=== PATIENT | male | born 1975 | race Caucasian/White ===

== ENCOUNTER → 2016-11-05 | Outpatient (CLI) | payer OTHER, MEDICAID ==
--- NOTE | 2016-11-05 16:23 | DX ---
Chest, PA and Lateral History: Cough and fever x3 days R05 Comparison: September 14, 2016 Findings: There is some new localized tubular patchy consolidation in the posterior chest, seen only on the lateral view overlying the thoracic spine and costophrenic gutter region, consistent with eith er mucous plugging or minimal atelectasis. Heart size is normal. There is no adenopathy or mass lesi on. There is no pleural effusion or obvious pneumonia. Bones are unremarkable for age. Impression: Mucous plugging plus minus minor atelectasis posterior chest, side indeterminate. No pne umonia.
== END ==
LOC: BMCIMAGING 15:37
DX: R05 Cough (principal); R50.9 Fever, unspecified; J98.11 Atelectasis

== ENCOUNTER 2016-12-21 20:52 | Emergency (ER) | payer OTHER, MEDICAID ==
[2016-12-21] MEDS ORDERED: KETAMINE 500 MG/10 ML VIAL ONE (21:04)
--- NOTE | 2016-12-21 21:04 | EDPHY ---
H & P Time Seen by Provider: 12/21/16 20:54 HPI/ROS: CHIEF COMPLAINT: " I am going to kill myself" HISTORY OF PRESENT ILLNESS: Patient is a 41-year-old male brought in by EMS and police after being found agitated and combative. Patient was walking in traffic and being belligerent per the security police officer. He was combative. He was tazed twice in the back. He continued to be combative and was given Versed 5 mg IM. On arrival to the emergency department he is yelling and not cooperative. He will not answer any questions. REVIEW OF SYSTEMS: Unable to obtain review of systems due to combativeness Past Medical/Surgical History: Unknown Past surgical history: Unknown Smoking Status: Light smoker Physical Exam: GENERAL: Extremely agitated. Combative. Screaming explitives and insults at staff. Requiring multiple personnel told the patient on the plan. HEENT: Spit mask in place. Because of his combativeness complete exam was not able to be performed. NECK: Supple. Moves neck freely.. RESPIRATORY: Clear to auscultation bilaterally, no rales, rhonchi or wheezing. CVS: mild tachycardia with regular rhythm, no rubs, murmurs, or gallops. ABDOMEN: obese. Soft, nontender, nondistended. BACK: Normal to inspection, no CVA tenderness. Back abrasion. Taser prongs removed from the back. SKIN: Normal color, no rash, warm, dry. No pallor. EXTREMITIES: No pedal edema, no joint swelling. NEURO/PSYCH: Alert and combative. Moves all extremities with purposeful movement. Constitutional: Initial Vital Signs Temperature (C) 37.2 C 12/21/16 21:23 Heart Rate 114 H 12/21/16 21:23 Respiratory Rate 20 12/21/16 21:23 Blood Pressure 168/88 H 12/21/16 21:23 O2 Sat (%) 95 12/21/16 21:23 O2 Delivery Mode Non-Rebreather Mask O2 (L/minute) 15 Allergies/Adverse Reactions: prednisone Allergy (Severe, Verified 04/04/16 21:18) haloperidol [From Haldol] Allergy (Unknown, Verified 04/04/16 21:18) haloperidol lactate [From Haldol] Allergy (Unknown, Verified 04/04/16 21:18) morphine Allergy (Unknown, Verified 09/14/16 19:54) Rash quetiapine fumarate [From Seroquel] Allergy (Unknown, Verified 04/04/16 21:18) risperidone Allergy (Unknown, Verified 04/04/16 21:18) shellfish derived Allergy (Unknown, Verified 04/05/16 14:38) ziprasidone HCl [From Geodon] Allergy (Unknown, Verified 04/04/16 21:18) ziprasidone mesylate [From Geodon] Allergy (Unknown, Verified 04/04/16 21:18) Home Medications: Medication Instructions Recorded Dextroamphetamine ER [Dexedrine 15 30 mg PO BID@08,14 #60 cap 04/15/16 MG (*)] Pantoprazole Sodium [Protonix 40mg 40 mg PO DAILY #30 tab 04/15/16 (*)] clonazePAM [klonoPIN (*)] 1 mg PO TID #30 tab 04/15/16 ARIPiprazole [Abilify Maintena] 400 mg IM Q30D 09/14/16 Acetaminophen [Tylenol ES 500 mg 1,000 mg PO BID PRN 09/14/16 (*)] Albuterol [Proventil Inhaler HFA 2 puffs IH Q4H PRN 09/14/16 (*)] Aspirin [Aspirin 325 mg (*)] 650 mg PO BID PRN 09/14/16 Gabapentin [Neurontin 300 MG (*)] 300 mg PO HS 09/14/16 Ranitidine HCl [Zantac] 150 mg PO Q8H PRN 09/14/16 Methylprednisolone 1 each PO AD #1 tab.ds.pk 09/16/16 guaiFENesin/DEXTROMETHORPHAN 10 ml PO Q4HRS PRN #0 ml 09/16/16 [Robitussin Dm Oral Liquid (*)] Oseltamivir Phosphate [Tamiflu 75 75 mg PO BIDMEAL #5 cap 09/17/16 mg (*)] Oxycodone HCl 5 mg PO Q6 PRN #15 tablet 09/17/16 Medical Decision Making ED Course/Re-evaluation: In the emergency department met EMS and police on arrival. As stated in HPI, the patient was extremely combative. I was worried he may harm the staff. The patient was given Haldol 15 mg IM. Staff continued to hold the patient on the EMS pram to see if his agitation would improve. He was subsequently given a dose of ketamine 500 mg IM. The patient became less combative and calmed down. He was able to be moved to our bed. He is placed in hard 4 point restraints. The patient remained calm. His hard restraints were removed. 2300: Patient is signed out to Dr. Oneal at change of shift. The patient is awaiting further evaluation and clearance. Differential Diagnosis: My differential includes but is not limited to agitated delirium, psychosis, schizophrenia, drug overdose, drug abuse, alcohol abuse, electrolyte abnormality , sugar abnormality, hyperthermia, mass, malignancy, CVA - Data Points Laboratory Results: Laboratory Results 12/21/16 22:38 12/21/16 12/21/16 12/21/16 22:38 22:38 22:15 WBC 12.87 10^3/uL H 10^3/uL (3.80-9.50) RBC 5.74 10^6/uL 10^6/uL (4.40-6.38) Hgb 18.1 g/dL H g/dL (13.7-17.5) Hct 53.1 % H % (40.0-51.0) MCV 92.5 fL fL (81.5-99.8) MCH 31.5 pg pg (27.9-34.1) MCHC 34.1 g/dL g/dL (32.4-36.7) RDW 13.3 % % (11.5-15.2) Plt Count 252 10^3/uL 10^3/uL (150-400) MPV 11.0 fL fL (8.7-11.7) Neut % (Auto) 80.0 % H % (39.3-74.2) Lymph % (Auto) 13.9 % L % (15.0-45.0) Alfalfa % (Auto) 4.5 % % (4.5-13.0) Eos % (Auto) 0.5 % L % (0.6-7.6) Baso % (Auto) 0.6 % % (0.3-1.7) Nucleat RBC Rel Count 0.0 % % (0.0-0.2) Absolute Neuts (auto) 10.29 10^3/uL H 10^3/uL (1.70-6.50) Absolute Lymphs (auto) 1.79 10^3/uL 10^3/uL (1.00-3.00) Absolute Monos (auto) 0.58 10^3/uL 10^3/uL (0.30-0.80) Absolute Eos (auto) 0.07 10^3/uL 10^3/uL (0.03-0.40) Absolute Basos (auto) 0.08 10^3/uL 10^3/uL (0.02-0.10) Absolute Nucleated RBC 0.00 10^3/uL 10^3/uL (0-0.01) Immature Gran % 0.5 % % (0.0-1.1) Immature Gran # 0.06 10^3/uL 10^3/uL (0.00-0.10) Turbidity REJ Sodium Pending REJ Potassium Pending REJ Chloride Pending REJ Carbon Dioxide Pending REJ Anion Gap Pending REJ BUN Pending REJ Creatinine Pending REJ Estimated GFR Pending REJ Glucose Pending REJ Calcium Pending REJ Icterus Index REJ Specimen Hemolysis REJ Salicylates Pending REJ Acetaminophen Pending REJ Ethyl Alcohol Pending REJ 12/21/16 22:15 WBC TNP RBC TNP Hgb TNP Hct TNP MCV TNP MCH TNP MCHC TNP RDW TNP Plt Count TNP MPV TNP Neut % (Auto) TNP Lymph % (Auto) TNP Alfalfa % (Auto) TNP Eos % (Auto) TNP Baso % (Auto) TNP Nucleat RBC Rel Count TNP Absolute Neuts (auto) TNP Absolute Lymphs (auto) TNP Absolute Monos (auto) TNP Absolute Eos (auto) TNP Absolute Basos (auto) TNP Absolute Nucleated RBC TNP Immature Gran % TNP Immature Gran # TNP Turbidity Sodium Potassium Chloride Carbon Dioxide Anion Gap BUN Creatinine Estimated GFR Glucose Calcium Icterus Index Specimen Hemolysis Salicylates Acetaminophen Ethyl Alcohol Medications Given: Discontinued Medications Ketamine HCl (Ketamine) 500 mg IM EDNOW ONE Stop: 12/21/16 21:51 Last Admin: 12/21/16 21:01 Dose: 500 mg Departure - Departure Disposition: [facility] Clinical Impression: Altered mental status Qualifiers: Altered mental status type: unspecified Qualified Code(s): R41.82 - Altered mental status, unspecified Condition: Fair Referrals: NONE *PRIMARY CARE P,. [Primary Care Provider] - As per Instructions
[2016-12-21] MEDS ORDERED: KETAMINE 500 MG/10 ML VIAL IM ONE (21:50)
[2016-12-21] MEDS ORDERED: HALOPERIDOL LACT 5 MG/ML INJ IM PRN (21:51)
[2016-12-21 22:47] LABS: % IMMATURE GRANULYOCYTES 0.5 % (0.0-1.1); ABSOLUTE IMMATURE GRANULOCYTES 0.06 10^3/uL (0.00-0.10); ADD DIFF? NO; ADD MORPH? NO; ADD SCAN? NO; ATYPICAL LYMPHOCYTE FLAG 0 (0-99); FRAGMENT RBC FLAG 0 (0-99); HEMATOCRIT 53.1 % (40.0-51.0); HEMOGLOBIN 18.1 g/dL (13.7-17.5); LEFT SHIFT FLG 0 (0-99); LIPEMIA HEMOLYSIS FLAG 90 (0-99); MEAN CELL HEMOGLOBIN 31.5 pg (27.9-34.1); MEAN CELL HEMOGLOBIN CONCENTR. 34.1 g/dL (32.4-36.7); MEAN CELL VOLUME 92.5 fL (81.5-99.8); PLATELET CLUMPS FLAG 0 (0-99); PLATELET COUNT 252 10^3/uL (150-400); RED BLOOD CELL COUNT 5.74 10^6/uL (4.40-6.38); RED CELL DISTRIBUTION WIDTH 13.3 % (11.5-15.2)
[2016-12-21 23:01] LABS: ANION GAP 22 mEq/L (8-16); CALCIUM 10.2 mg/dL (8.5-10.4); CARBON DIOXIDE 14 mEq/l (22-31); CHLORIDE 106 mEq/L (97-110); CREATININE 1.4 mg/dL (0.7-1.3); ETHANOL SERUM 150 mg/dL (0-10); GLOMERULAR FILTRATION RATE 56; GLUCOSE 69 mg/dL (70-100); SALICYLATE < 1.0 mg/dL (2.0-20.0); SODIUM 142 mEq/L (134-144)
[2016-12-22 02:59] VITALS: RESP 16; TEMP 98.4
[2016-12-22 05:36] VITALS: BP 166/84; PULSE 95; O2SAT 97
== END 2016-12-22 06:14 | disposition home or self-care (01) ==
LOC: EDUNIT#
DX: R41.82 Altered mental status, unspecified (principal); F17.200 Nicotine dependence, unspecified, uncomplicated; Z79.82 Long term (current) use of aspirin
CPT/HCPCS: 80305; G0480

== ENCOUNTER 2017-04-03 14:03 | Emergency (ER) | payer OTHER, MEDICAID ==
--- NOTE | 2017-04-03 14:12 | EDPHY ---
HPI/HX/ROS/PE/MDM Narrative: CHIEF COMPLAINT: M1 Hold HPI: The patient is a 41-year-old male, [facility] for making SI/HI threats. According to the report the patient was making threats about finding a gun and harming others. He also threatened to harm himself with a razor. Further history is unobtainable because patient is refusing evaluation. REVIEW OF SYSTEMS: Unobtainable, patient refuses evaluation. 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 SOCIAL HISTORY: Alcohol use. Homeless. PHYSICAL EXAM: General: Patient is alert, in no acute distress. ENT: Eyes are normal to inspection. ENT inspection normal. Neck: Normal inspection. Full range of motion. Respiratory: No respiratory distress. Breath sounds normal bilaterally. Cardiovascular: Regular rate and rhythm. Strong peripheral pulses. Abdomen: The abdomen is nontender to palpation. There are no peritoneal signs. There are normal bowel sounds. Back: Normal to inspection. No tenderness to palpation. Skin: Normal color. No rash. Warm and dry. Extremities: Normal appearance. Full range of motion. Neuro: Oriented x3. Normal motor function. Normal sensory function. (Jorge Muñoz) ED Course: Plan for mental health evaluation. Patient was signed out to Dr. Marin at shift change. Patient awaiting mental health evaluation. (Jorge Muñoz) 9:24 Reassessed patient. (Krista Burks) 2300 care assumed by me from Dr. Marin pending mental health evaluation. Patient seen by mental health. They feel he is appropriate for CSU placement. Patient will need re-evaluation morning. 0700 patient signed out to Dr. Burks pending mental health evaluation possible CSU placement. (Joseph Wheat) MDM: I assumed care of this patient at 7:[address] Wheat. I have examined this patient twice today. He has been cooperative, asking only for his usual prescription medications which include dextroamphetamine and Protonix. These were given per his usual schedule. He has been alert and ambulatory. Lungs are clear. Heart has a regular rate and rhythm. Initially it was thought that he would be able to go to a CSU bed but [facility]. He is being re-evaluated this evening. His care will be transferred to Dr. Osorio Chase at 4:15 p.m.. (Krista Burks) 2300 care re-assumed by me at 11:00 p.m. pending placement. 2318 patient has been seen by the mental health [employer] assistant principal on re-evaluation. Patient is awake alert tucker for safety. Patient states that his statements earlier for metatarsal. He has not have any plans to harm self or others at this time. Case has been discussed with Dr. Ramírez, psychiatrist to actually evaluated the patient 4 days ago. They feel that he is appropriate to go back to respite care. She has lifted the hold. Patient will be discharged back to his respiratory. (Joseph Wheat) - Data Points Laboratory Results: Laboratory Results 04/03/17 14:29 04/03/17 14:29 Medications Given: Discontinued Medications Acetaminophen (Tylenol) 650 mg PO EDNOW ONE Stop: 04/04/17 15:23 Last Admin: 04/04/17 15:55 Dose: 650 mg Dextroamphetamine Sulfate (Dexedrine) 30 mg PO EDNOW ONE Stop: 04/04/17 09:26 Last Admin: 04/04/17 10:05 Dose: 30 mg Diazepam (Valium) 10 mg PO EDNOW ONE Stop: 04/04/17 19:37 Last Admin: 04/04/17 19:49 Dose: 10 mg Diazepam (Valium) 5 mg PO EDNOW ONE Stop: 04/04/17 21:31 Last Admin: 04/04/17 21:30 Dose: 5 mg Nicotine (Nicoderm Cq) 14 mg TD EDNOW ONE Stop: 04/04/17 05:39 Last Admin: 04/04/17 06:09 Dose: 14 mg Nicotine (Nicoderm Cq) 14 mg TD EDNOW ONE Stop: 04/04/17 19:37 Last Admin: 04/04/17 20:20 Dose: 14 mg Pantoprazole Sodium (Protonix) 40 mg PO EDNOW ONE Stop: 04/04/17 09:25 Last Admin: 04/04/17 10:05 Dose: 40 mg General Initial Vital Signs: Initial Vital Signs Temperature (C) 37.0 C 04/03/17 14:08 Heart Rate 103 H 04/03/17 14:08 Respiratory Rate 16 04/03/17 14:08 Blood Pressure 135/86 H 04/03/17 14:08 O2 Sat (%) 95 04/03/17 14:08 O2 Delivery Mode Room Air Allergies/Adverse Reactions: prednisone Allergy (Severe, Verified 04/04/16 21:18) haloperidol [From Haldol] Allergy (Unknown, Verified 04/04/16 21:18) haloperidol lactate [From Haldol] Allergy (Unknown, Verified 04/04/16 21:18) morphine Allergy (Unknown, Verified 09/14/16 19:54) Rash quetiapine fumarate [From Seroquel] Allergy (Unknown, Verified 04/04/16 21:18) risperidone Allergy (Unknown, Verified 04/04/16 21:18) shellfish derived Allergy (Unknown, Verified 04/05/16 14:38) ziprasidone HCl [From Geodon] Allergy (Unknown, Verified 04/04/16 21:18) ziprasidone mesylate [From Geodon] Allergy (Unknown, Verified 04/04/16 21:18) Home Medications: Medication Instructions Recorded Pantoprazole Sodium [Protonix 40mg 40 mg PO DAILY #30 tab 04/15/16 (*)] ARIPiprazole [Abilify Maintena] 400 mg IM Q30D 09/14/16 Albuterol [Proventil Inhaler HFA 2 puffs IH Q4H PRN 09/14/16 (*)] Gabapentin [Neurontin 300 MG (*)] 100 - 300 mg PO HS 09/14/16 Ranitidine HCl [Zantac] 150 mg PO BID PRN 09/14/16 Dextroamphetamine ER [Dexedrine 15 30 mg PO BID 04/04/17 MG (*)] Diazepam [Valium 10 MG (*)] 10 mg PO TID PRN 04/04/17 Meloxicam 15 mg PO DAILY 04/04/17 Departure - Departure Disposition: Home, Routine, Self-Care Clinical Impression: Depression Condition: Fair Instructions: Depression (ED) Additional Instructions: Follow up with [facility] for continued care of your depression. Return emergency depart for increasing suicidal homicidal thoughts, hallucinations, increasing anxiety, or any other concerns. Referrals: NONE *PRIMARY CARE P,. [Primary Care Provider] - As per Instructions [facility]] - As per Instructions Report Scribed for: Jorge Muñoz Report Scribed by: Inna La Date of Report: 04/03/17 Time of Report: 14:12 Physician Review and Approval Statement: Portions of this note were transcribed by a biomedical engineer. I personally performed a history, physical exam, medical decision making, and confirmed accuracy of information the transcribed note.
[2017-04-03 14:41] LABS: % IMMATURE GRANULYOCYTES 0.4 % (0.0-1.1); ABSOLUTE IMMATURE GRANULOCYTES 0.04 10^3/uL (0.00-0.10); ADD DIFF? NO; ADD MORPH? NO; ADD SCAN? NO; ATYPICAL LYMPHOCYTE FLAG 0 (0-99); FRAGMENT RBC FLAG 20 (0-99); HEMOGLOBIN 18.2 g/dL (13.7-17.5); LEFT SHIFT FLG 0 (0-99); LIPEMIA HEMOLYSIS FLAG 90 (0-99); MEAN CELL HEMOGLOBIN 32.6 pg (27.9-34.1); MEAN CELL HEMOGLOBIN CONCENTR. 35.7 g/dL (32.4-36.7); MEAN CELL VOLUME 91.2 fL (81.5-99.8); MEAN PLATELET VOLUME 10.6 fL (8.7-11.7); PLATELET CLUMPS FLAG 10 (0-99); PLATELET COUNT 226 10^3/uL (150-400); RED BLOOD CELL COUNT 5.59 10^6/uL (4.40-6.38); RED CELL DISTRIBUTION WIDTH 11.9 % (11.5-15.2)
[2017-04-03 15:40] LABS: ANION GAP 15 mEq/L (8-16); CARBON DIOXIDE 18 mEq/l (22-31); CHLORIDE 107 mEq/L (97-110); GLOMERULAR FILTRATION RATE > 60; GLUCOSE 91 mg/dL (70-100); POTASSIUM 4.1 mEq/L (3.5-5.2); SODIUM 140 mEq/L (134-144)
[2017-04-04] MEDS ORDERED: NICOTINE 14 MG/24 HR PATCH TD ONE ×2 (05:38→19:36)
[2017-04-04] MEDS ORDERED: PANTOPRAZOLE SODIUM 40 MG TAB PO ONE (09:24)
[2017-04-04] MEDS ORDERED: DEXTROAMPHETAMINE ER 15 MG CAP PO ONE (09:25)
[2017-04-04] MEDS ORDERED: ACETAMINOPHEN 325 MG TAB PO ONE (15:22)
[2017-04-04] MEDS ORDERED: DIAZEPAM 5 MG TAB PO ONE ×2 (19:36→21:30)
[2017-04-04] MEDS ORDERED: DIAZEPAM 5 MG TAB ONE (21:35)
[2017-04-05 00:37] VITALS: BP 116/97; PULSE 106; RESP 20; TEMP 97.5; O2SAT 99
[2017-04-05] MEDS ORDERED: RANITIDINE SYRUP 15 MG/1 ML UDSYR PO ONE (09:26)
[2017-04-05] MEDS ORDERED: DEXTROAMPHETAMINE ER 15 MG CAP PO ONE (14:01)
== END 2017-04-05 00:41 | disposition home or self-care (01) ==
LOC: EDUNIT#
DX: F32.9 Major depressive disorder, single episode, unspecified (principal)
CPT/HCPCS: 80305

== ENCOUNTER 2017-06-17 00:13 | Emergency (ER) | payer OTHER, MEDICAID ==
--- NOTE | 2017-06-17 01:54 | EDPHY ---
H & P Stated Complaint: Self inflicted head against tree while angry, sent by [facility] - Personal History Current Tetanus/Diphtheria Vaccine: Yes Current Tetanus Diphtheria and Acellular Pertussis (TDAP): Yes Tetanus Vaccine Date: 2009 - Medical/Surgical History Hx Asthma: Yes Hx Chronic Respiratory Disease: Yes Hx Diabetes: No Hx Cardiac Disease: No Hx Renal Disease: No Hx Cirrhosis: No Hx Alcoholism: Yes Hx HIV/AIDS: No Hx Splenectomy or Spleen Trauma: No Other PMH: pancreatitis x 6 yrs, gastritis, hx sz (ETOH) in ED, depression, Schizoaffective disorder, gerd, PTSD, major depressive disorder, COPD, asthma - Social History Smoking Status: Current every day smoker Time Seen by Provider: 06/17/17 00:44 HPI/ROS: Chief Complaint: Head injury, mental health hold HPI: 41-year-old homeless male sent in from [facility] for medical clearance and placement. Patient presented there this evening for evaluation. He is deemed to be suicidal and required medical clearance for placement. Patient also is complaining of headache. He states that he struck his head against a tree 2 nights ago several times on purpose because he was angry. Patient states that he has self-inflicted bilateral wrist lacerations in the past when he got angry in chose not to this time. Patient is also states that he thinks he twisted his knee at that time it has been having knee pain. He states that he has not have full recollection of events after he struck his head. He has had a persistent bifrontal headache. Also has a contusion. Some nausea but no vomiting. No fevers or chills. No neck pain. No numbness or weakness. He does have some suicidal thoughts but no active plan at this time. Patient was placed on a mental health hold by the [facility] [employer]. ROS: 10 point Review of Systems is negative except as noted in the HPI. PMH: Depression, bipolar disorder by history Social History: Positive smoking, positive alcohol, positive marijuana Family History: non-contributory Physical Exam: Gen: Awake, Alert, No Distress HEENT: He has a central forehead small contusion with ecchymosis. There is no abrasion over the bridge of his nose with no deformity. Nose: no rhinorrhea Eyes: PERRLA, EOMI Mouth: Moist mucosa Neck: Supple, no JVD Chest: nontender, lungs clear to auscultation Heart: S1, S2 normal, no murmur Abd: Soft, non-tender, no guarding Back: no CVA tenderness, no midline tenderness Ext: Right knee has mild edema, mild diffuse tenderness, no erythema, no decreased range of motion, mild effusion Skin: no rash Neuro: CN II-XII intact, Sensation grossly intact, Strength 5/5 in bilateral upper and lower extremities (Joseph Wheat) Constitutional: Initial Vital Signs Temperature (C) 36.6 C 06/17/17 00:34 Heart Rate 82 06/17/17 00:34 Respiratory Rate 18 06/17/17 00:34 Blood Pressure 116/82 H 06/17/17 00:34 O2 Sat (%) 94 06/17/17 00:34 O2 Delivery Mode Room Air Allergies/Adverse Reactions: prednisone Allergy (Severe, Verified 06/17/17 00:47) haloperidol [From Haldol] Allergy (Unknown, Verified 06/17/17 00:47) haloperidol lactate [From Haldol] Allergy (Unknown, Verified 06/17/17 00:47) morphine Allergy (Unknown, Verified 06/17/17 00:47) Rash quetiapine fumarate [From Seroquel] Allergy (Unknown, Verified 06/17/17 00:47) risperidone Allergy (Unknown, Verified 06/17/17 00:47) shellfish derived Allergy (Unknown, Verified 06/17/17 00:47) ziprasidone HCl [From Geodon] Allergy (Unknown, Verified 06/17/17 00:47) ziprasidone mesylate [From Geodon] Allergy (Unknown, Verified 06/17/17 00:47) Home Medications: Medication Instructions Recorded Gabapentin [Neurontin 300 MG (*)] 100 - 300 mg PO DAILY 09/14/16 Ranitidine HCl [Zantac] 150 mg PO BID PRN 09/14/16 Diazepam [Valium 10 MG (*)] 10 mg PO TID PRN 04/04/17 Ondansetron Odt [Zofran Odt 4 mg 4 mg PO Q4 PRN 06/17/17 (*)] Medical Decision Making - Diagnostics Imaging Results: Imaging Impressions Knee X-Ray 06/17/17 00:50 Impression: No acute osseous findings. ED Course/Re-evaluation: Patient sent by [facility] for suicidal ideation and medical clearance for head injury after a self-inflicted injury [address] scan of his head is negative. Right knee x-ray shows process small effusion but no acute fractures. He is ambulating without difficulty. Awaiting blood work for medical clearance and placement. 0700 patient signed out to Dr. Muñoz pending placement. (Joseph Wheat) Other Provider: 1432: Patient is becoming combative and attempted to attack RN. He is screaming threats at staff. We will medicate him with 5mg IM Zyprexa and 2mg IM Ativan for his safety and the safety of our staff. (Jorge Muñoz) - Data Points Laboratory Results: Laboratory Results 06/17/17 03:05 06/17/17 03:05 06/17/17 06/17/17 06/17/17 03:05 03:05 03:05 WBC 8.48 10^3/uL 10^3/uL (3.80-9.50) RBC 5.01 10^6/uL 10^6/uL (4.40-6.38) Hgb 16.1 g/dL g/dL (13.7-17.5) Hct 47.7 % % (40.0-51.0) MCV 95.2 fL fL (81.5-99.8) MCH 32.1 pg pg (27.9-34.1) MCHC 33.8 g/dL g/dL (32.4-36.7) RDW 12.3 % % (11.5-15.2) Plt Count 205 10^3/uL 10^3/uL (150-400) MPV 11.0 fL fL (8.7-11.7) Neut % (Auto) 55.6 % % (39.3-74.2) Lymph % (Auto) 31.1 % % (15.0-45.0) [place] % (Auto) 8.0 % % (4.5-13.0) Eos % (Auto) 4.1 % % (0.6-7.6) Baso % (Auto) 0.8 % % (0.3-1.7) Nucleat RBC Rel Count 0.0 % % (0.0-0.2) Absolute Neuts (auto) 4.71 10^3/uL 10^3/uL (1.70-6.50) Absolute Lymphs (auto) 2.64 10^3/uL 10^3/uL (1.00-3.00) Absolute Monos (auto) 0.68 10^3/uL 10^3/uL (0.30-0.80) Absolute Eos (auto) 0.35 10^3/uL 10^3/uL (0.03-0.40) Absolute Basos (auto) 0.07 10^3/uL 10^3/uL (0.02-0.10) Absolute Nucleated RBC 0.00 10^3/uL 10^3/uL (0-0.01) Immature Gran % 0.4 % % (0.0-1.1) Immature Gran # 0.03 10^3/uL 10^3/uL (0.00-0.10) Sodium 141 mEq/L mEq/L (134-144) Potassium 4.3 mEq/L mEq/L (3.5-5.2) Chloride 103 mEq/L mEq/L (97-110) Carbon Dioxide 28 mEq/l mEq/l (22-31) Anion Gap 10 mEq/L mEq/L (8-16) BUN 21 mg/dL mg/dL (7-23) Creatinine 1.0 mg/dL mg/dL (0.7-1.3) Estimated GFR > 60 Glucose 65 mg/dL L mg/dL (70-100) Calcium 10.3 mg/dL mg/dL (8.5-10.4) Urine Opiates Screen NEGATIVE (NEGATIVE) Urine Barbiturates NEGATIVE (NEGATIVE) Ur Phencyclidine Scrn NEGATIVE (NEGATIVE) Ur Amphetamine Screen NEGATIVE (NEGATIVE) U Benzodiazepines Scrn NON-NEGATIVE H (NEGATIVE) Urine Cocaine Screen NEGATIVE (NEGATIVE) U Marijuana (THC) Screen NEGATIVE (NEGATIVE) Ethyl Alcohol < 10 mg/dL mg/dL (0-10) Medications Given: Ranitidine HCl (Zantac) 150 mg PO DAILY АНДРЕЙ Stop: 12/14/17 08:14 Last Admin: 06/17/17 09:06 Dose: Not Given Discontinued Medications Diazepam (Valium) 10 mg PO EDNOW ONE Stop: 06/17/17 03:10 Last Admin: 06/17/17 03:30 Dose: 10 mg Diazepam (Valium) 10 mg PO EDNOW ONE Stop: 06/17/17 08:05 Last Admin: 06/17/17 08:26 Dose: 10 mg Diazepam (Valium) 10 mg PO EDNOW ONE Stop: 06/17/17 14:02 Last Admin: 06/17/17 14:31 Dose: 10 mg Gabapentin (Neurontin) 300 mg PO EDNOW ONE Stop: 06/17/17 03:10 Last Admin: 06/17/17 03:29 Dose: 300 mg Gabapentin (Neurontin) 300 mg PO EDNOW ONE Stop: 06/17/17 09:28 Last Admin: 06/17/17 09:30 Dose: 300 mg Nicotine (Nicoderm Cq) 21 mg TD EDNOW ONE Stop: 06/17/17 09:25 Last Admin: 06/17/17 09:30 Dose: 21 mg Departure - Departure Disposition: Home, Routine, Self-Care Clinical Impression: Forehead contusion, Knee sprain Condition: Good Instructions: Knee Sprain (ED), Contusion in Adults (ED) Additional Instructions: Patient is medically cleared to return to [facility]. Return to the emergency department for increasing headache, nausea, vomiting, fevers, chills, numbness, weakness, or any other concerns. Referrals: NONE *PRIMARY CARE P,. [Primary Care Provider] - As per Instructions
[2017-06-17] MEDS ORDERED: GABAPENTIN 300 MG CAP PO ONE ×2 (03:09→09:27)
[2017-06-17] MEDS ORDERED: DIAZEPAM 5 MG TAB PO ONE ×3 (03:09→14:01)
[2017-06-17 03:16] LABS: % IMMATURE GRANULYOCYTES 0.4 % (0.0-1.1); ABSOLUTE IMMATURE GRANULOCYTES 0.03 10^3/uL (0.00-0.10); ADD DIFF? NO; ADD MORPH? NO; ADD SCAN? NO; ATYPICAL LYMPHOCYTE FLAG 0 (0-99); FRAGMENT RBC FLAG 0 (0-99); HEMATOCRIT 47.7 % (40.0-51.0); HEMOGLOBIN 16.1 g/dL (13.7-17.5); LEFT SHIFT FLG 0 (0-99); LIPEMIA HEMOLYSIS FLAG 90 (0-99); MEAN CELL HEMOGLOBIN 32.1 pg (27.9-34.1); MEAN CELL HEMOGLOBIN CONCENTR. 33.8 g/dL (32.4-36.7); MEAN CELL VOLUME 95.2 fL (81.5-99.8); PLATELET CLUMPS FLAG 10 (0-99); PLATELET COUNT 205 10^3/uL (150-400); RED BLOOD CELL COUNT 5.01 10^6/uL (4.40-6.38); RED CELL DISTRIBUTION WIDTH 12.3 % (11.5-15.2)
[2017-06-17 03:27] LABS: ANION GAP 10 mEq/L (8-16); CALCIUM 10.3 mg/dL (8.5-10.4); CARBON DIOXIDE 28 mEq/l (22-31); CHLORIDE 103 mEq/L (97-110); ETHANOL SERUM < 10 mg/dL (0-10); GLOMERULAR FILTRATION RATE > 60; GLUCOSE 65 mg/dL (70-100); POTASSIUM 4.3 mEq/L (3.5-5.2); SODIUM 141 mEq/L (134-144)
[2017-06-17] MEDS ORDERED: DIAZEPAM 5 MG TAB ONE ×2 (03:32→03:35)
[2017-06-17] MEDS ORDERED: GABAPENTIN 300 MG CAP ONE (03:32)
[2017-06-17 07:29] VITALS: PULSE 89
[2017-06-17] MEDS: RANITIDINE SYRUP 15 MG/1 ML UDSYR PO SCH ×2 (08:48→09:06)
[2017-06-17] MEDS ORDERED: NICOTINE 21 MG/24 HR PATCH TD ONE (09:24)
[2017-06-17] MEDS ORDERED: NICOTINE 14 MG/24 HR PATCH TD ONE (13:01)
[2017-06-17] MEDS ORDERED: LORazepam 2 MG/ML INJ IM ONE (14:33)
[2017-06-17] MEDS ORDERED: HALOPERIDOL LACT 5 MG/ML INJ IM ONE (14:33)
[2017-06-17] MEDS ORDERED: LORazepam 2 MG/ML INJ ONE (14:34)
[2017-06-17] MEDS ORDERED: HALOPERIDOL LACT 5 MG/ML INJ ONE (14:34)
[2017-06-17] MEDS ORDERED: OLANZapine 10 MG/2 ML VIAL IM ONE (14:35)
[2017-06-17 17:34] VITALS: BP 136/102; RESP 18; TEMP 98.1; O2SAT 99
== END 2017-06-17 18:53 | disposition home or self-care (01) ==
LOC: EDUNIT# → EEVIPCON 00:13
DX: S00.83XA Contusion of other part of head, initial encounter (principal); S83.91XA Sprain of unspecified site of right knee, initial encounter; J44.9 Chronic obstructive pulmonary disease, unspecified; X83.8XXA Intentional self-harm by other specified means, initial encounter; Y93.89 Activity, other specified; F17.200 Nicotine dependence, unspecified, uncomplicated
CPT/HCPCS: 70450; 73562; 96372; 99285; J2060; 80305; G0480

== ENCOUNTER 2017-07-11 12:32 | Emergency (ER) | payer OTHER, MEDICAID ==
[2017-07-11 12:54] VITALS: RESP 16
--- NOTE | 2017-07-11 13:24 | EDPHY ---
H & P Stated Complaint: benzo withdrawl Time Seen by Provider: 07/11/17 13:24 - Personal History Current Tetanus/Diphtheria Vaccine: Yes Current Tetanus Diphtheria and Acellular Pertussis (TDAP): Yes Tetanus Vaccine Date: 2009 - Medical/Surgical History Hx Asthma: Yes Hx Chronic Respiratory Disease: Yes Hx Diabetes: No Hx Cardiac Disease: No Hx Renal Disease: No Hx Cirrhosis: No Hx Alcoholism: Yes Hx HIV/AIDS: No Hx Splenectomy or Spleen Trauma: No Other PMH: pancreatitis x 6 yrs, gastritis, hx sz (ETOH) in ED, depression, Schizoaffective disorder, gerd, PTSD, major depressive disorder, COPD, asthma, ADHD - Social History Smoking Status: Current every day smoker Constitutional: Initial Vital Signs Temperature (C) 36.2 C 07/11/17 12:35 Heart Rate 88 07/11/17 12:35 Respiratory Rate 16 07/11/17 12:35 Blood Pressure 124/86 H 07/11/17 12:35 O2 Sat (%) 93 07/11/17 12:35 O2 Delivery Mode Room Air Allergies/Adverse Reactions: prednisone Allergy (Severe, Verified 06/17/17 00:47) haloperidol [From Haldol] Allergy (Unknown, Verified 06/17/17 00:47) haloperidol lactate [From Haldol] Allergy (Unknown, Verified 06/17/17 00:47) morphine Allergy (Unknown, Verified 06/17/17 00:47) Rash quetiapine fumarate [From Seroquel] Allergy (Unknown, Verified 06/17/17 00:47) risperidone Allergy (Unknown, Verified 06/17/17 00:47) shellfish derived Allergy (Unknown, Verified 06/17/17 00:47) ziprasidone HCl [From Geodon] Allergy (Unknown, Verified 06/17/17 00:47) ziprasidone mesylate [From Geodon] Allergy (Unknown, Verified 06/17/17 00:47) Home Medications: Medication Instructions Recorded Gabapentin [Neurontin 300 MG (*)] 100 - 300 mg PO DAILY 09/14/16 Ranitidine HCl [Zantac] 150 mg PO BID PRN 09/14/16 Diazepam [Valium 10 MG (*)] 10 mg PO TID PRN 04/04/17 Ondansetron Odt [Zofran Odt 4 mg 4 mg PO Q4 PRN 06/17/17 (*)] Clonazepam 07/11/17 Medical Decision Making ED Course/Re-evaluation: CHIEF COMPLAINT: Benzodiazepine withdrawal. HISTORY OF PRESENT ILLNESS: This patient is a 41 y/o male presents arriving from the crisis center for evaluation of possible benzodiazepine withdrawal. He states his last intake was within the last week. He told providers at [facility] he did not want to be on medications anymore two days ago, and discontinued his Valium without taper. Prior to this, he was taking 10mg of Valium three times a day. He is feeling very poorly today. He denies recent illness or trauma. REVIEW OF SYSTEMS: A 10 point review of systems was performed and is negative with the exception of the elements mentioned in the history of present illness. PHYSICAL EXAM: HR, BP, O2 Sat, RR. Temp noted General Appearance: Alert, well hydrated, appropriate, and non-toxic appearing. Head: Atraumatic without scalp tenderness or obvious injury Eyes: Pupils equal, round, reactive to light and accommodation, EOMI, no trauma , no injection. Ears: Clear bilaterally, no perforation, normal landmarks Nose: Atraumatic, no rhinorrhea, clear. Throat: There is no erythema or exudates, no lesions, normal tonsils, mucus membranes moist. Neck: Supple, 2+ carotid upstroke, nontender, no lymphadenopathy. Respiratory: No retractions, no distress, no wheezes, and no accessory muscle use. Lungs are clear to auscultation bilaterally. Cardiovascular: Regular rate and rhythm, no murmurs, rubs, or gallops. Bilateral carotid, radial, dorsalis pedis, and posterior tibial pulses intact. Good capillary refill all extremities. Gastrointestinal: Abdomen is soft, nontender, non-distended, no masses, no rebound, no guarding, no peritoneal signs. Musculoskeletal: Normal active ROM of all extremities, atraumatic. Neurological: Alert, appropriate, and interactive. The patient has normal DTRs and non-focal cranial nerves, motor, sensory, and cerebellar exam. Skin: No rashes, good turgor, no nodules on palpation. Past medical history: Schizoaffective disorder, Pancreatitis, Alcohol abuse, Withdrawal seizures, Depression Past surgical history: Noncontributory Family history: Noncontributory Social history: Alcohol use. Homeless. Benzodiazepine use. DIFFERENTIAL DIAGNOSIS: Includes but not limited to benzodiazepine withdrawal, alcohol withdrawal, electrolyte imbalance. MEDICAL DECISION MAKIN41 y/o male presents with malaise after discontinuing his Valium 30mg suddenly. I discussed the importance of tapering off benzodiazepines to avoid dangerous withdrawal effects. Plan to discharge home in good condition with prescription for Valium taper ( 5mg TID x 7 days, 2mg TID x 7 days, 1mg TID x 7 days). The patient is comfortable with this plan. Departure - Departure Disposition: Home, Routine, Self-Care Clinical Impression: Benzodiazepine withdrawal Qualifiers: Complication of substance-induced condition: uncomplicated Qualified Code(s): F13.230 - Sedative, hypnotic or anxiolytic dependence with withdrawal, uncomplicated Condition: Good Instructions: Diazepam (By mouth) Additional Instructions: 1. Taper your Valium as prescribed in order to avoid withdrawal effects. 2. Follow up with your regular care providers for continued discussion of your medication regimen. Referrals: [facility],. [Clinic] - As per Instructions [facility],. [Clinic] - As per Instructions Report Scribed for: Hever Marin Report Scribed by: Vera Ayers Date of Report: 07/11/17 Time of Report: 13:41
[2017-07-11] MEDS ORDERED: DIAZEPAM 5 MG TAB PO ONE (13:57)
[2017-07-11 14:06] VITALS: BP 120/80; PULSE 94; TEMP 97.5; O2SAT 97
== END 2017-07-11 14:07 | disposition home or self-care (01) ==
LOC: EDUNIT#
DX: F13.230 Sedative, hypnotic or anxiolytic dependence with withdrawal, uncomplicated (principal); F17.200 Nicotine dependence, unspecified, uncomplicated; J44.9 Chronic obstructive pulmonary disease, unspecified

== ENCOUNTER 2017-07-27 16:05 | Inpatient (IN) | payer OTHER, MEDICAID ==
--- NOTE | 2017-07-27 16:35 | EDPHY ---
H & P Smoking Status: Current every day smoker Time Seen by Provider: 07/27/17 16:13 HPI/ROS: CHIEF COMPLAINT: Suicidal ideation, loosen a osorio HISTORY OF PRESENT ILLNESS: Patient is a 41-year-old male with history of depression and previous suicide attempts who presents emergency department a with new suicidal ideation. The patient states he has been feeling more and more depressed. He hears voices yelling at him to "do it. "Patient has had thoughts of wanting to cut himself. He has had multiple previous suicide attempts with cutting. These include both arms as well as his neck. The patient denies drug or alcohol use. He has been taking his medications as prescribed until yesterday. REVIEW OF SYSTEMS: My complete review of systems is negative except as mentioned in the HPI. ( Nidia Cole) Past Medical/Surgical History: Includes schizoaffective disorder, depression, alcohol related seizures, PTSD, COPD, asthma, attention deficit hyperactivity disorder, gastritis, pancreatitis Social history: Patient denies drugs or alcohol (Nidia Cole) Physical Exam: 36.7, 103/74, 90, 20, 98% on room air GENERAL: Well-appearing, in no acute distress, alert. HEENT: Eyes normal to inspection, normal pharynx, no signs of dehydration. NECK: No thyromegaly, no lymphadenopathy, supple. Right lateral neck scar RESPIRATORY: Clear to auscultation bilaterally, no rales, rhonchi or wheezing. CVS: Regular rate and rhythm, no rubs, murmurs, or gallops. ABDOMEN: Soft, nontender, nondistended, no organomegaly. BACK: Normal to inspection, no CVA tenderness. SKIN: Normal color, no rash, warm, dry. No pallor. EXTREMITIES: Multiple old deep scarring on his bilateral upper extremities. No pedal edema, no calf tenderness, no Homans sign or cords, no joint swelling. NEURO/PSYCH: Alert and oriented, flat affect, normal motor sensory exam. No obvious cranial nerve deficit. (Nidia Cole S) Constitutional: Initial Vital Signs Temperature (C) 36.7 C 07/27/17 16:09 Heart Rate 90 07/27/17 16:09 Respiratory Rate 20 07/27/17 16:09 Blood Pressure 103/74 07/27/17 16:09 O2 Sat (%) 98 07/27/17 16:09 O2 Delivery Mode Room Air Allergies/Adverse Reactions: prednisone Allergy (Severe, Verified 07/27/17 16:06) haloperidol [From Haldol] Allergy (Unknown, Verified 07/27/17 16:06) haloperidol lactate [From Haldol] Allergy (Unknown, Verified 07/27/17 16:06) morphine Allergy (Unknown, Verified 07/27/17 16:06) Rash quetiapine fumarate [From Seroquel] Allergy (Unknown, Verified 07/27/17 16:06) risperidone Allergy (Unknown, Verified 07/27/17 16:06) shellfish derived Allergy (Unknown, Verified 07/27/17 16:06) ziprasidone HCl [From Geodon] Allergy (Unknown, Verified 07/27/17 16:06) ziprasidone mesylate [From Geodon] Allergy (Unknown, Verified 07/27/17 16:06) Home Medications: Medication Instructions Recorded Ranitidine HCl [Zantac] 150 mg PO BID PRN 09/14/16 Ondansetron Odt [Zofran Odt 4 mg 4 mg PO Q4 PRN 06/17/17 (*)] Diazepam [Valium 2 MG (*)] 2 mg PO TID #42 tab 07/11/17 ARIPiprazole [Abilify Maintena] 300 mg IM Q28D 07/27/17 Dextroamphetamine ER [Dexedrine 15 30 mg PO ,12,17 07/27/17 MG (*)] Ipratropium/Albuterol [Combivent 1 inh IH QID PRN 07/27/17 Respimat Inhal Riparius(*)] Medical Decision Making ED Course/Re-evaluation: In the emergency department I discussed possible the plan with the patient. I informed him that he was being placed on a mental health hold. A mental health hold form was completed. Laboratory studies were ordered. Mental health evaluation was ordered. The patient's tox screen was positive for methamphetamine, benzodiazepine, and THC. Patient's aspirin and salicylates levels were normal. Other laboratory studies unremarkable. Psychiatric Services recommend the patient be placed. The patient agrees with this plan. The patient was given his normal evening medications. The patient was given a Nicoderm patch. 21 35: The patient was given Tylenol at request. 2200: Patient is signed out to Dr. Oneal at change of shift awaiting placement. The patient is stable. (Nidia Cole) Differential Diagnosis: My differential includes but is not limited to depression, suicidal ideation, schizoaffective disorder, schizophrenia, drug abuse, alcohol abuse (Nidia Cole) Other Provider: 11:45 p.m.- The patient remained stable during my shift. He was accepted to [address] [place] [address] Gil[address] I have completed the EMTALA form. (Mary Alice Oneal) - Data Points Laboratory Results: Laboratory Results 07/27/17 16:24 07/27/17 16:24 07/27/17 07/27/17 07/27/17 16:24 16:24 16:24 WBC 10.85 10^3/uL H 10^3/uL (3.80-9.50) RBC 5.60 10^6/uL 10^6/uL (4.40-6.38) Hgb 18.3 g/dL H g/dL (13.7-17.5) Hct 51.4 % H % (40.0-51.0) MCV 91.8 fL fL (81.5-99.8) MCH 32.7 pg pg (27.9-34.1) MCHC 35.6 g/dL g/dL (32.4-36.7) RDW 12.3 % % (11.5-15.2) Plt Count 240 10^3/uL 10^3/uL (150-400) MPV 10.5 fL fL (8.7-11.7) Neut % (Auto) 68.9 % % (39.3-74.2) Lymph % (Auto) 23.2 % % (15.0-45.0) Nance % (Auto) 6.4 % % (4.5-13.0) Eos % (Auto) 0.7 % % (0.6-7.6) Baso % (Auto) 0.5 % % (0.3-1.7) Nucleat RBC Rel Count 0.0 % % (0.0-0.2) Absolute Neuts (auto) 7.48 10^3/uL H 10^3/uL (1.70-6.50) Absolute Lymphs (auto) 2.52 10^3/uL 10^3/uL (1.00-3.00) Absolute Monos (auto) 0.69 10^3/uL 10^3/uL (0.30-0.80) Absolute Eos (auto) 0.08 10^3/uL 10^3/uL (0.03-0.40) Absolute Basos (auto) 0.05 10^3/uL 10^3/uL (0.02-0.10) Absolute Nucleated RBC 0.00 10^3/uL 10^3/uL (0-0.01) Immature Gran % 0.3 % % (0.0-1.1) Immature Gran # 0.03 10^3/uL 10^3/uL (0.00-0.10) Sodium 140 mEq/L mEq/L (134-144) Potassium 4.1 mEq/L mEq/L (3.5-5.2) Chloride 102 mEq/L mEq/L (97-110) Carbon Dioxide 22 mEq/l mEq/l (22-31) Anion Gap 16 mEq/L mEq/L (8-16) BUN 11 mg/dL mg/dL (7-23) Creatinine 0.9 mg/dL mg/dL (0.7-1.3) Estimated GFR > 60 Glucose 83 mg/dL mg/dL (70-100) Calcium 9.7 mg/dL mg/dL (8.5-10.4) Salicylates < 1.0 mg/dL L mg/dL (2.0-20.0) Urine Opiates Screen NEGATIVE (NEGATIVE) Acetaminophen < 10 mcg/mL L mcg/mL (10-30) Urine Barbiturates NEGATIVE (NEGATIVE) Ur Phencyclidine Scrn NEGATIVE (NEGATIVE) Ur Amphetamine Screen NON-NEGATIVE H (NEGATIVE) U Benzodiazepines Scrn NON-NEGATIVE H (NEGATIVE) Urine Cocaine Screen NEGATIVE (NEGATIVE) U Marijuana (THC) Screen NON-NEGATIVE H (NEGATIVE) Ethyl Alcohol < 10 mg/dL mg/dL (0-10) Medications Given: Dextroamphetamine Sulfate (Dexedrine) 30 mg PO EDNOW ONE Stop: 07/28/17 17:03 Last Admin: 07/27/17 17:22 Dose: 30 mg Discontinued Medications Acetaminophen (Tylenol 160mg/5ml Oral Liquid) 650 mg PO EDNOW ONE Stop: 07/27/17 21:40 Last Admin: 07/27/17 21:41 Dose: Not Given Acetaminophen (Tylenol) 650 mg PO EDNOW ONE Stop: 07/27/17 21:43 Last Admin: 07/27/17 21:43 Dose: Not Given Acetaminophen (Tylenol) 650 mg PO EDNOW ONE Stop: 07/27/17 21:44 Last Admin: 07/27/17 21:44 Dose: 650 mg Diazepam (Valium) 10 mg PO EDNOW ONE Stop: 07/27/17 17:03 Last Admin: 07/27/17 17:22 Dose: 10 mg Famotidine (Pepcid) 20 mg PO EDNOW ONE Stop: 07/27/17 19:46 Last Admin: 07/27/17 19:52 Dose: 20 mg Nicotine (Nicoderm Cq) 14 mg TD EDNOW ONE Stop: 07/27/17 19:20 Last Admin: 07/27/17 19:52 Dose: 14 mg Departure - Departure Disposition: [facility] IP Clinical Impression: Suicidal ideation Depression Qualifiers: Depression Type: unspecified Qualified Code(s): F32.9 - Major depressive disorder, single episode, unspecified Condition: Good Referrals: Zehra Irvin PAC [Primary Care Provider] - As per Instructions
[2017-07-27 16:43] LABS: % IMMATURE GRANULYOCYTES 0.3 % (0.0-1.1); ABSOLUTE IMMATURE GRANULOCYTES 0.03 10^3/uL (0.00-0.10); ADD DIFF? NO; ADD MORPH? NO; ADD SCAN? NO; ATYPICAL LYMPHOCYTE FLAG 0 (0-99); FRAGMENT RBC FLAG 0 (0-99); HEMATOCRIT 51.4 % (40.0-51.0); HEMOGLOBIN 18.3 g/dL (13.7-17.5); LEFT SHIFT FLG 0 (0-99); LIPEMIA HEMOLYSIS FLAG 90 (0-99); MEAN CELL HEMOGLOBIN 32.7 pg (27.9-34.1); MEAN CELL HEMOGLOBIN CONCENTR. 35.6 g/dL (32.4-36.7); MEAN CELL VOLUME 91.8 fL (81.5-99.8); MEAN PLATELET VOLUME 10.5 fL (8.7-11.7); PLATELET CLUMPS FLAG 0 (0-99); PLATELET COUNT 240 10^3/uL (150-400); RED CELL DISTRIBUTION WIDTH 12.3 % (11.5-15.2)
[2017-07-27 16:57] LABS: ANION GAP 16 mEq/L (8-16); CALCIUM 9.7 mg/dL (8.5-10.4); CARBON DIOXIDE 22 mEq/l (22-31); CHLORIDE 102 mEq/L (97-110); CREATININE 0.9 mg/dL (0.7-1.3); ETHANOL SERUM < 10 mg/dL (0-10); GLOMERULAR FILTRATION RATE > 60; GLUCOSE 83 mg/dL (70-100); POTASSIUM 4.1 mEq/L (3.5-5.2); SALICYLATE < 1.0 mg/dL (2.0-20.0); SODIUM 140 mEq/L (134-144)
[2017-07-27] MEDS ORDERED: DIAZEPAM 5 MG TAB PO ONE (17:02)
[2017-07-27] MEDS ORDERED: NICOTINE 14 MG/24 HR PATCH TD ONE (19:19)
[2017-07-27] MEDS ORDERED: RANITIDINE SYRUP 15 MG/1 ML UDSYR PO ONE (19:21)
[2017-07-27] MEDS ORDERED: FAMOTIDINE 20 MG TAB PO ONE (19:45)
[2017-07-27] MEDS ORDERED: ACETAMINOPHEN 325 MG TAB ONE (21:36)
[2017-07-27] MEDS ORDERED: ACETAMINOPHEN 160 MG/5 ML UDCUP PO ONE (21:39)
[2017-07-27] MEDS ORDERED: ACETAMINOPHEN 500 MG TAB PO ONE (21:42)
[2017-07-27] MEDS ORDERED: ACETAMINOPHEN 325 MG TAB PO ONE (21:43)
[2017-07-28] MEDS ORDERED: MAG HYDROX/AL HYDROX/SIMETH 30 ML UDCUP PO PRN (00:55)
[2017-07-28] MEDS ORDERED: MAGNESIUM HYDROXIDE 30 ML UDCUP PO PRN (00:55)
[2017-07-28] MEDS ORDERED: MELATONIN 3 MG TAB PO PRN (00:57)
[2017-07-28] MEDS: LORazepam 1 MG TAB PO PRN ×3 (01:13→12:05)
[2017-07-28 01:26] VITALS: RESP 14
[2017-07-28] MEDS: NICOTINE POLACRILEX 2 MG GUM B PRN ×2 (06:51→12:04)
[2017-07-28] MEDS: ACETAMINOPHEN 325 MG TAB PO PRN ×2 (06:52→12:04)
[2017-07-28] MEDS ORDERED: NON-FORMULARY NEW DRUG (Ranitidine Hcl [Zantac] 150 MG) PO PRN (07:10)
[2017-07-28] MEDS ORDERED: IPRATROPIUM/ALBUTEROL 4GM MDI IH PRN (07:10)
[2017-07-28] MEDS ORDERED: FAMOTIDINE 20 MG TAB PO PRN (08:07)
[2017-07-28] MEDS: ARIPiprazole 5 MG TAB PO SCH ×2 (08:47→09:08)
[2017-07-28] MEDS ORDERED: DIAZEPAM 5 MG TAB PO SCH (09:00)
[2017-07-28] MEDS ORDERED: DIAZEPAM 5 MG TAB PO PRN (12:07)
[2017-07-28] MEDS ORDERED: OLANZapine DISINTEGR 5 MG TAB PO PRN (13:34)
[2017-07-28] MEDS ORDERED: GABAPENTIN 300 MG CAP PO PRN (13:35)
[2017-07-28] MEDS: NICOTINE 14 MG/24 HR PATCH TD SCH (15:00)
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
[2017-07-28] MEDS: DIAZEPAM 2 MG TAB PO PRN (16:16)
[2017-07-28] MEDS ORDERED: DEXTROAMPHETAMINE ER 15 MG CAP PO ONE (17:02)
[2017-07-28] MEDS ORDERED: IBUPROFEN 600 MG TAB PO PRN (17:23)
[2017-07-28] MEDS: FAMOTIDINE 20 MG TAB PO SCH (20:38)
[2017-07-28] MEDS: CLOTRIMAZOLE 1% 15 GM CRTUBE TP SCH (20:38)
--- NOTE | 2017-07-29 00:12 | BCON ---
[f rep st] BEHAVIORAL HEALTH CONSULTATION INTERNAL MEDICINE CONSULTATION DATE OF CONSULTATION: 07/28/2017 REFERRING PHYSICIAN: Ivory Gil MD REASON FOR REFERRAL: Medical clearance for inpatient behavioral health stay. HISTORY OF PRESENT ILLNESS: This patient came to the emergency department complaining of suicidal ideation with a plan to cut himself. He reported that he was particularly depressed because he was homeless and did not want to stay at the retirement. He was evaluated by the mental health team and admitted for further psychiatric care. Currently, he complains of foot pain bilaterally and he asks for something stronger than Tylenol, and also reports that he cannot take NSAIDs due to his gastroesophageal reflux. He also reports, however, that his GERD is not symptomatic at present. PAST MEDICAL HISTORY: 1. Schizoaffective disorder. 2. Frostbitten feet. 3. Concussions x2. 4. Alcohol or other substance withdrawal seizure. 5. Alcoholism and polysubstance abuse. 6. Gastritis and pancreatitis from alcohol. 7. Possible sleep apnea. 8. Bronchitis. 9. Influenza. 10. Gastroesophageal reflux disorder. 11. COPD. 12. Pneumonia. MEDICATIONS: Prior to admission: 1. Dextroamphetamine 30 mg p.o. three times daily. 2. Ipratropium/albuterol 1 inhalation four times daily p.r.n. 3. Aripiprazole 300 mg IM q. 28 days. 4. Diazepam 2 mg p.o. three times daily. 5. Ranitidine 150 mg p.o. twice daily p.r.n. 6. Ondansetron 4 mg p.o. q.4 hours p.r.n. SOCIAL HISTORY: He is homeless. He is a smoker. He has a history of alcohol and polysubstance abuse. FAMILY HISTORY: Noncontributory. REVIEW OF SYSTEMS: His feet are painful with cracking skin and redness. He denies cough or dyspnea. He denies fevers or chills. He denies weight change. He denies pain other than his feet including no chest pain. He denies palpitations. He denies nausea, vomiting, constipation, or diarrhea. Otherwise , a 10-point review of systems is negative. He has some pruritus as well as burning and pain to his feet. He denies pruritus anywhere else. PHYSICAL EXAM: VITAL SIGNS: Blood pressure is 143/93, heart rate is 110, respiratory rate is 14, oxygen saturation is 94% on room air, temperature is 36.5 degrees centigrade. GENERAL: This is an obese man, somewhat unkempt, cooperative and in no acute distress. HEENT: Extraocular movements are intact. Pupils are equal, round, reactive to light. Mucous membranes are moist. Dentition is in good condition. He has a mildly crowded airway, Mallampati class 2. NECK: Supple. HEART: There is a regular rate and rhythm with no murmurs, rubs, or gallops. LUNGS: Clear to auscultation bilaterally. ABDOMEN: Soft, nontender, nondistended with normoactive bowel sounds. EXTREMITIES: There is no cyanosis, clubbing, or edema. There is erythema over the toes, volar as well as plantar aspect. There are some shallow ulcerations between the toes, but there are no tracts consistent with burrowing insects. Radial and dorsalis pedis pulses are 2+ bilaterally. NEUROLOGIC: He is alert and oriented x3. Cranial nerves 2-12 are grossly intact. There is no focal weakness. Sensation is intact to light touch. He has a somewhat antalgic gait. LABORATORY STUDIES: Drawn in the emergency department: CBC showed an elevated white blood count at 10.85, he also had elevated hemoglobin and hematocrit at 18.3 and 51.4, very slightly above the normal limits. There was no left shift. Serum chemistry revealed normal renal function and electrolytes. Toxicology screen in the serum was negative for salicylates, acetaminophen or ethyl alcohol. The urine was non-negative for amphetamines, benzodiazepines and marijuana. ASSESSMENT AND RECOMMENDATIONS: 1. Mental health issues pending further evaluation and management per Psychiatry and the mental health team. 2. Likely pernio, which is a skin reaction to cold and is not frostbite. Possibly, he is susceptible to this due to history of frostbite. With itching on the feet as well, it may be exacerbated by tinea pedis. I have prescribed ibuprofen to help with pain and inflammation, and clotrimazole cream to treat for a possible tinea pedis. History of GERD is not a contraindication to occasional NSAID. 3. Elevated blood pressure and pulse, consistent with possible withdrawal from alcohol or benzodiazepines. Advise continue monitoring and consider treating with a benzodiazepine if he appears to be in a withdrawal syndrome. 4. Tobacco dependence syndrome. Advised smoking cessation. I see no medical contraindications to this patient's continued stay on the inpatient behavioral health unit or to any psychiatric medications or procedures. Thank you very much for including me in the care of this patient. Please do not hesitate to contact me or the hospitalist service should there be need for further medical evaluation. I will continue to follow along regarding his foot pain. /[id number]/MODL MTDD
[2017-07-29] MEDS: DIAZEPAM 2 MG TAB PO PRN ×3 (00:33→10:50)
[2017-07-29] MEDS: NICOTINE POLACRILEX 2 MG GUM B PRN (06:08)
[2017-07-29 06:15] VITALS: BP 102/63; PULSE 84; TEMP 98.4; O2SAT 95
[2017-07-29] MEDS: NICOTINE 14 MG/24 HR PATCH TD SCH (08:19)
[2017-07-29] MEDS: FAMOTIDINE 20 MG TAB PO SCH (08:20)
[2017-07-29] MEDS: ARIPiprazole 5 MG TAB PO SCH (08:21)
[2017-07-29] MEDS: CLOTRIMAZOLE 1% 15 GM CRTUBE TP SCH (10:13)
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
== END 2017-07-29 11:32 | disposition home or self-care (01) | DRG 885 ==
LOC: BBEH 07-28 00:25
PROVIDERS: ADMIT Psychiatry & Neurology Behavioral Neurology & Neuropsychiatry; ATTEND Psychiatry & Neurology Behavioral Neurology & Neuropsychiatry
DX: F25.9 Schizoaffective disorder, unspecified (principal); F17.200 Nicotine dependence, unspecified, uncomplicated; F12.90 Cannabis use, unspecified, uncomplicated; F90.9 Attention-deficit hyperactivity disorder, unspecified type
CPT/HCPCS: 80305; G0480

== ENCOUNTER 2017-09-30 14:30 | Emergency (ER) | payer OTHER, MEDICAID ==
[2017-09-30] MEDS ORDERED: HYDROCODONE/APAP 5/325 TAB PO ONE (15:33)
[2017-09-30] MEDS ORDERED: IBUPROFEN 600 MG TAB PO ONE (15:34)
--- NOTE | 2017-09-30 16:17 | EDPHY ---
HPI/HX/ROS/PE/MDM Narrative: CHIEF COMPLAINT: Possible frostbite on feet HISTORY OF PRESENT ILLNESS: The patient is a homeless 42 y/o male with a history of jackson bite, ADHD, and depression complaining of possible jackson bite on his feet. His toes started to go numb three days ago. He was having trouble balancing and bearing weight today. He denies any other locations or any other associated symptoms. He denies alcohol, marijuana, or illicit drug use. He reports he is not welcome at the homeless prison. He does not have a place to stay. No fever, chills, chest pain, shortness of breath, palpitations, vomiting, diarrhea, urinary complaints, headache, lightheadedness. REVIEW OF SYSTEMS: Aside from elements discussed in the HPI, a comprehensive 10-point review of systems was reviewed and is negative. PAST MEDICAL HISTORY: ADHD, depression SOCIAL HISTORY: Homeless, not welcome at homeless prison, no alcohol use VITAL SIGNS: Reviewed by me GENERAL: Disheveled, unkempt, no obvious distress. HEENT: Atraumatic. EXTREMITIES: Left lower extremity: Great toe, 2nd toe, 3rd toe: pale, dusky, insensate, and cool to the touch without capillary refill. 4th toe is erythematous and swollen. Right lower extremity: Plantar aspect of great toe, 2nd and 3rd toes: pale, dusky, insensate, and cool to the touch without capillary refill on the plantar surface. Dorsal surface is swollen, erythematous, tender. The lateral side of the 5th toe also has an area of frostbite: pale, tender but does have capillary refill. NEURO: Alert and oriented otherwise nonfocal exam except for insensate areas described above. PSYCHIATRIC: Normal mentation, no agitation. ED Course: The patient presents with frostbite on his toes bilaterally, worse on the left. He is homeless and not welcome at the local homeless prison. This is his second episode of frostbite. The temperature outside is below freezing tonight. Tech will wrap his toes. Pain medication will be administered to control his pain level. A case management director will be consulted for this patient. 1616: I spoke with a rehab care assistant for this patient. We are still working on a place for him to go for the night. 1730: I spoke with a rehab care assistant. She was unable to secure a custodial place for him. He is welcome at the [facility] and a respite bed may become available for him through [facility]. He has been advised to stay at the warming prison and remain indoors when possible. He was also instructed to continue working with [facility] regarding their respite bed. I feel this plan is sufficient though not ideal. Follow-up instructions and return precautions given. MDM: Diff dx considered included frostbite, frostnip, hypothermia, alcohol abuse, homelessness, threatened digit. - Data Points Medications Given: Discontinued Medications Hydrocodone Bitart/Acetaminophen ([place] 5/325) 1 tab PO EDNOW ONE Stop: 09/30/17 15:34 Last Admin: 09/30/17 15:37 Dose: 1 tab Ibuprofen (Motrin) 600 mg PO EDNOW ONE Stop: 09/30/17 15:35 Last Admin: 09/30/17 15:37 Dose: 600 mg General Time Seen by Provider: 09/30/17 14:56 Initial Vital Signs: Initial Vital Signs Temperature (C) 36.6 C 09/30/17 14:33 Heart Rate 105 H 09/30/17 14:33 Respiratory Rate 18 09/30/17 14:33 Blood Pressure 111/94 H 09/30/17 14:33 O2 Sat (%) 97 09/30/17 14:33 O2 Delivery Mode Room Air Allergies/Adverse Reactions: prednisone Allergy (Severe, Verified 07/27/17 16:06) haloperidol [From Haldol] Allergy (Unknown, Verified 07/27/17 16:06) haloperidol lactate [From Haldol] Allergy (Unknown, Verified 07/27/17 16:06) morphine Allergy (Unknown, Verified 07/27/17 16:06) Rash quetiapine fumarate [From Seroquel] Allergy (Unknown, Verified 07/27/17 16:06) risperidone Allergy (Unknown, Verified 07/27/17 16:06) shellfish derived Allergy (Unknown, Verified 07/27/17 16:06) ziprasidone HCl [From Geodon] Allergy (Unknown, Verified 07/27/17 16:06) ziprasidone mesylate [From Geodon] Allergy (Unknown, Verified 07/27/17 16:06) Home Medications: Medication Instructions Recorded Diazepam [Valium 2 MG (*)] 2 mg PO TID #42 tab 07/11/17 ARIPiprazole [Abilify Maintena] 300 mg IM Q28D 07/27/17 Dextroamphetamine ER [Dexedrine 15 30 mg PO ,,07/27/17 MG (*)] Ipratropium/Albuterol [Combivent 1 inh IH QID PRN 07/27/17 Respimat Inhal [place](*)] Clotrimazole 1% [Lotrimin 1%] 1 leticia TP BID #30 cream 07/29/17 Departure - Departure Disposition: Home, Routine, Self-Care Clinical Impression: Frostbite of both feet Qualifiers: Encounter type: initial encounter Qualified Code(s): T33.821A - Superficial frostbite of right foot, initial encounter; T33.822A - Superficial frostbite of left foot, initial encounter; T33.822A - Superficial frostbite of left foot, initial encounter Condition: Good Instructions: Frostbite (ED) Additional Instructions: You are being discharged to proceed to the [facility]. Please stay there tonight. Try to stay inside as much as possible tomorrow. Return tomorrow evening to [facility]. Continue working with [facility] regarding their respite bed. Follow up with your primary care provider regarding your healing process. Referrals: Zehra Irvin, PAC [Primary Care Provider] - As per Instructions [facility] [Outside] - As per Instructions Report Scribed for: Jenni Caputo Report Scribed by: Jessica Ruff Date of Report: 09/30/17 Time of Report: 15:02 Physician Review and Approval Statement: Portions of this note were transcribed by a medical practice assistant. I personally performed a history, physical exam, medical decision making, and confirmed accuracy of information the transcribed note.
[2017-09-30] MEDS ORDERED: ONDANSETRON DISINTEGRATING 4 MG TAB ONE (19:02)
[2017-09-30 19:06] VITALS: BP 130/80; PULSE 81; RESP 16; TEMP 98.1; O2SAT 94
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
== END 2017-09-30 19:06 | disposition home or self-care (01) ==
DX: T33.821A Superficial frostbite of right foot, initial encounter (principal); T33.822A Superficial frostbite of left foot, initial encounter; X58.XXXA Exposure to other specified factors, initial encounter

== ENCOUNTER 2017-10-26 14:13 | Emergency (ER) | payer OTHER, MEDICAID ==
[2017-10-26 14:29] VITALS: BP 150/90; PULSE 100; RESP 16; TEMP 98.4; O2SAT 99
[2017-10-26] MEDS ORDERED: SKIN ADHESIVE (DERMABOND) 1 EACH TP ONE (14:33)
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
[2017-10-26] MEDS ORDERED: KETAMINE 500 MG/10 ML VIAL ONE (14:41)
[2017-10-26] MEDS ORDERED: KETAMINE 500 MG/10 ML VIAL IM ONE (14:44)
== END 2017-10-26 14:55 ==
LOC: EDUNIT#
PROC: 0HQ1XZZ Repair Face Skin, External Approach (ICD-10-PCS; principal; 2017-10-26)
DX: S90.412A Abrasion, left great toe, initial encounter (principal); S01.81XA Laceration without foreign body of other part of head, initial encounter; F17.200 Nicotine dependence, unspecified, uncomplicated; W51.XXXA Accidental striking against or bumped into by another person, initial encounter; Y93.89 Activity, other specified

== ENCOUNTER 2019-01-02 13:58 | Emergency (ER) | payer OTHER, MEDICAID ==
--- NOTE | 2019-01-02 13:54 | EDPHY ---
H & P Time Seen by Provider: 01/02/19 13:58 Constitutional: Initial Vital Signs Heart Rate 128 H 01/02/19 14:03 Respiratory Rate 22 H 01/02/19 14:03 Blood Pressure 129/104 H 01/02/19 14:03 O2 Sat (%) 95 01/02/19 14:03 O2 Delivery Mode Room Air Allergies/Adverse Reactions: prednisone Allergy (Severe, Verified 07/27/17 16:06) haloperidol [From Haldol] Allergy (Unknown, Verified 07/27/17 16:06) haloperidol lactate [From Haldol] Allergy (Unknown, Verified 07/27/17 16:06) morphine Allergy (Unknown, Verified 07/27/17 16:06) Rash quetiapine fumarate [From Seroquel] Allergy (Unknown, Verified 07/27/17 16:06) risperidone Allergy (Unknown, Verified 07/27/17 16:06) shellfish derived Allergy (Unknown, Verified 07/27/17 16:06) ziprasidone HCl [From Geodon] Allergy (Unknown, Verified 07/27/17 16:06) ziprasidone mesylate [From Geodon] Allergy (Unknown, Verified 07/27/17 16:06) Home Medications: Medication Instructions Recorded Diazepam [Valium 2 MG (*)] 2 mg PO TID #42 tab 07/11/17 ARIPiprazole [Abilify Maintena] 300 mg IM Q28D 07/27/17 Dextroamphetamine ER [Dexedrine 15 30 mg PO 06,12,17 07/27/17 MG (*)] Ipratropium/Albuterol [Combivent 1 inh IH QID PRN 07/27/17 Respimat Inhal [place](*)] Clotrimazole 1% [Lotrimin 1%] 1 leticia TP BID #30 cream 07/29/17 Medical Decision Making ED Course/Re-evaluation: CHIEF COMPLAINT: Med clear for shelter HISTORY OF PRESENT ILLNESS: The patient is a 43 y/o male arriving via EMS with [facility] for medical clearance. The patient is wearing a spit [place] and screaming at staff. The patient was given 5mg IV Versed with minimal effect. No fever, headache, body aches, lightheadedness, chest pain, heart palpitations, shortness of breath, cough, abdominal pain, urinary or bowel complaints, numbness, paresthesias. REVIEW OF SYSTEMS: A comprehensive 10 system review of systems is otherwise negative aside from elements mentioned in the history of present illness and medical decision making. PHYSICAL EXAM: HR, BP, O2 Sat, RR. Temp noted General Appearance: Screaming at staff, wearing spit [place], hobbled. Alert, well hydrated, and non-toxic appearing. Head: Atraumatic without scalp tenderness or obvious injury Eyes: Pupils equal, round, reactive to light and accommodation, EOMI, no trauma , no injection. Ears: Clear bilaterally, no perforation, normal landmarks Nose: Atraumatic, no rhinorrhea, clear. Throat: There is no erythema or exudates, no lesions, normal tonsils, mucus membranes moist. Neck: Supple, 2+ carotid upstroke, nontender, no lymphadenopathy. Respiratory: No retractions, no distress, no wheezes, and no accessory muscle use. Lungs are clear to auscultation bilaterally. Cardiovascular: Regular rate and rhythm, no murmurs, rubs, or gallops. Bilateral carotid, radial, dorsalis pedis, and posterior tibial pulses intact. Good capillary refill all extremities. Gastrointestinal: Abdomen is soft, nontender, non-distended, no masses, no rebound, no guarding, no peritoneal signs. Musculoskeletal: Normal active ROM of all extremities, atraumatic. Neurological: Screaming. The patient has normal DTRs and non-focal cranial nerves, motor, sensory, and cerebellar exam. Skin: No rashes, good turgor, no nodules on palpation. Past medical history: Unknown Past surgical history: Unknown Family history: Unknown Social history: Transient, single, not employed DIAGNOSTICS/PROCEDURES/CRITICAL CARE TIME: Not indicated. DIFFERENTIAL DIAGNOSIS: The differential diagnosis for the patient's altered mental status included but was not limited to hypoglycemia, infectious process, electrolyte abnormality, head injury, neurologic process, anemia, cardiac process, and intoxicants. MEDICAL DECISION MAKING: The patient is a 43 y/o male arriving via EMS with [facility] for medical clearance. The patient is wearing a spit [place] and screaming at staff. The patient was given 5mg IV Versed with minimal effect. Besides agitated behavior, patient is medically clear for shelter. 1358: I met EMS upon arrival. Departure - Departure Disposition: Law Enforcement/Court/[facility] Clinical Impression: Medical clearance for incarceration, Combative behavior Condition: Good Instructions: Normal Exam (ED) Additional Instructions: Follow-up with your primary doctor within 72 hours. Return to the Emergency Department for fever, chest pain, shortness of breath, increasing pain or other worsening of condition. Pt is medically cleared for shelter Referrals: Patient,NotPresent [Primary Care Provider] - As per Instructions [facility],. [Clinic] - As per Instructions Report Scribed for: Hever Marin Report Scribed by: Zuri Parnell Date of Report: 01/02/19 Time of Report: 13:58
[2019-01-02 14:08] VITALS: BP 129/104
== END 2019-01-02 14:08 ==
LOC: EDUNIT#
DX: Z02.89 Encounter for other administrative examinations (principal); R45.6 Violent behavior

== ENCOUNTER 2019-01-24 17:51 | Emergency (ER) | payer MEDICAID, OTHER ==
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
[2019-01-24] MEDS ORDERED: KETAMINE 200 MG/20 ML VIAL ONE ×2 (18:19→19:15)
[2019-01-24 18:58] VITALS: BP 125/85
== END 2019-01-24 19:15 ==
LOC: EDUNIT#
DX: R45.6 Violent behavior (principal); F10.920 Alcohol use, unspecified with intoxication, uncomplicated; S00.31XA Abrasion of nose, initial encounter; X58.XXXA Exposure to other specified factors, initial encounter

== ENCOUNTER 2019-03-02 05:59 | Inpatient (IN) | payer OTHER, MEDICAID | END 2019-03-09 11:05 | disposition home or self-care (01) | LOC: F3E 05:59 ==